=== PATIENT | female | born 1990 ===

== ENCOUNTER 2019-09-16 15:36 | Outpatient (CLI) | payer OTHER | END 2019-09-17 07:55 | disposition home or self-care (01) | LOC: MAMO-SONO 15:36 | DX: O00.01 Abdominal pregnancy with intrauterine pregnancy (principal); Z30.431 Encounter for routine checking of intrauterine contraceptive device ==

== ENCOUNTER 2019-09-24 11:11 | Emergency (ER) | payer OTHER ==
[~2019-09-24] VITALS: Ht 162.6 cm; Wt 63.5 kg
== END 2019-09-24 14:28 | disposition home or self-care (01) ==
LOC: ER 11:11
DX: B34.9 Viral infection, unspecified (principal); Z20.828 Contact with and (suspected) exposure to other viral communicable diseases

== ENCOUNTER 2019-09-26 17:12 | Emergency (ER) | payer OTHER ==
[~2019-09-26] VITALS: Ht 157.5 cm; Wt 73.9 kg
== END 2019-09-26 21:17 | disposition home or self-care (01) ==
LOC: ER 17:12 → EMR PED 17:31 → ER 17:31
DX: R50.9 Fever, unspecified (principal); B96.0 Mycoplasma pneumoniae [M. pneumoniae] as the cause of diseases classified elsewhere

== ENCOUNTER → 2019-11-17 | Outpatient (CLI) | payer OTHER | END | disposition home or self-care (01) | LOC: MAMO-SONO 11-03 12:45 | DX: N63.20 Unspecified lump in the left breast, unspecified quadrant (principal); N64.59 Other signs and symptoms in breast ==

== ENCOUNTER → 2020-06-15 | Outpatient (CLI) | payer OTHER | END | disposition home or self-care (01) | LOC: PRENATAL 09:42 | PROVIDERS: ATTEND Obstetrics & Gynecology Maternal & Fetal Medicine | DX: O35.0XX1 Maternal care for (suspected) central nervous system malformation in fetus, fetus 1 (principal); O35.3XX1 Maternal care for (suspected) damage to fetus from viral disease in mother, fetus 1; O98.512 Other viral diseases complicating pregnancy, second trimester; Z36.89 Encounter for other specified antenatal screening; Z3A.19 19 weeks gestation of pregnancy ==